=== PATIENT | female | born 1950 | race Caucasian/White ===

== ENCOUNTER 2024-06-07 13:15 | Emergency (ER) | payer MEDICARE, BC ==
[~2024-06-07] VITALS: Ht 165.1 cm; Wt 65.0 kg
[2024-06-07 13:16] VITALS: BP 157/96; PULSE 101; TEMP 99.2; O2SAT 97
[2024-06-07] MEDS ORDERED: SILV50CR31 TOP (14:48)
[2024-06-07] MEDS ORDERED: HYDR-3965 PO (14:48)
[2024-06-07] MEDS ORDERED: ONDA-243 PO (14:48)
[2024-06-07 14:58] VITALS: RESP 16
[2024-06-07] MEDS: ketorolac trometh. 30mg/ml inj. IM ONE (14:58)
== END 2024-06-07 15:16 | disposition home or self-care (01) ==
LOC: ER 13:16
DX: T22.10XA Burn of first degree of shoulder and upper limb, except wrist and hand, unspecified site, initial encounter (principal); T22.141A Burn of first degree of right axilla, initial encounter; T21.12XA Burn of first degree of abdominal wall, initial encounter; Z79.899 Other long term (current) drug therapy; Z79.2 Long term (current) use of antibiotics; X12.XXXA Contact with other hot fluids, initial encounter; Y93.89 Activity, other specified; Y92.89 Other specified places as the place of occurrence of the external cause; Y99.8 Other external cause status
CPT/HCPCS: 96372; 99283; J1885